=== PATIENT | female | born 1970 | race Caucasian/White ===

== ENCOUNTER 2016-09-11 14:48 | Emergency (ER) | payer OTHER ==
[2016-09-11 15:56] VITALS: BP 127/86
--- NOTE | 2016-09-11 16:56 | UC ---
Headache HPI - HPI Summary HPI Summary: frontal headache with sinus pressure x 3 days. No fever. States she was treated with an antibiotic several days ago, and seemed to get better, but still has a "migraine" headache. States she was dx'd with migraine and has been treated with a shot here before, but doesn't know the name of the shot. Does not take medication for migraines usually. Reviewing prior records from [facility] [place], pt received ketorolac in 2013. Pt agrees to try this again. Also c/o nausea and photophobia. - History Of Current Complaint Chief Complaint: UCRespiratory Stated Complaint: MIGRAINE,SINUS PRESSURE Time Seen by Provider: 09/11/16 16:53 Hx Obtained From: Patient Hx Last Menstrual Period: 08/25/16 ?: No Onset/Duration: Gradual Onset, Lasting Days, Still Present Onset Of Symptoms: Gradual Initially Headache Was: Moderate Pain Intensity: 7 Pain Scale Used: 0-10 Numeric Timing: Constant Character: Throbbing, Pressure, Migraine Location of Headache: Frontal Aggravating Factor: Nothing Allevating Factors: Nothing Associated Signs And Symptoms: Positive: Nausea, Sinus Pressure, Other (Noted In Comments) - photophobia - Risk Factors SAH Risk Factors: Smoking Meningitis Risk Factors: Negative SDH Risk Factors: Negative Temporal Arteritis Risk Factors: Female, - Allergies/Home Medications Allergies/Adverse Reactions: Allergies Allergy/AdvReac Type Severity Reaction Status Date / Time Lisinopril Allergy Severe Difficulty Verified 09/11/16 15:56 Breathing Bee Venom Allergy Intermediate Swelling Verified 09/11/16 15:56 Of Face,Lips,& Throat Penicillins AdvReac Intermediate Vomiting Verified 09/11/16 15:56 PMH/Surg Hx/FS Hx/Imm Hx Endocrine History Of: Reports: Diabetes - type II Denies: Thyroid Disease Cardiovascular History Of: Reports: Hypertension Respiratory History Of: Reports: Asthma Denies: COPD GI/ History Of: Denies: Ulcer Neurological History Of: Denies: TIA Psychological History Of: Denies: Anxiety Cancer History Of: Denies: Lung Cancer - Surgical History Surgical History: None - Family History Known Family History: Positive: Hypertension, Diabetes - Social History Alcohol Use: Rare Substance Use Type: None Smoking Status (MU): Heavy Every Day Tobacco Smoker Type: Cigarettes Amount Used/How Often: 1/2 PPD Length of Time of Smoking/Using Tobacco: 31 Years Have You Smoked in the Last Year: Yes Household Exposure Type: Cigarettes - Immunization History Most Recent Influenza Vaccination: March 2015 Review of Systems Constitutional: Negative Skin: Negative Eyes: Negative ENT: Negative Respiratory: Negative Cardiovascular: Negative Gastrointestinal: Negative Genitourinary: Negative Motor: Negative Neurovascular: Negative Musculoskeletal: Negative Neurological: Headache Psychological: Negative All Other Systems Reviewed And Are Negative: Yes Physical Exam Triage Information Reviewed: Yes Appearance: Ill-Appearing, Pain Distress, Obese Vital Signs: Initial Vital Signs Temp 97.4 F 09/11/16 15:49 Pulse 79 09/11/16 15:49 Resp 16 09/11/16 15:49 BP 127/86 09/11/16 15:49 Pulse Ox 98 09/11/16 15:49 Vital Signs Reviewed: Yes Eyes: Positive: Conjunctiva Clear ENT: Positive: Hearing grossly normal, Pharynx normal, TMs normal, Other: - frontal sinus tenderness. Negative: Muffled/hoarse voice Neck: Positive: Supple, Nontender, No Lymphadenopathy Respiratory: Positive: Lungs clear, Normal breath sounds, No respiratory distress Cardiovascular: Positive: RRR, No Murmur, Pulses Normal, Brisk Capillary Refill Musculoskeletal: Positive: Strength Intact, ROM Intact Neurological: Positive: Alert, Muscle Tone Normal, Other: - A&O X 3, CN II-XII intact, motor 5/5, sensation intact, gait normal Psychological Exam: Normal Skin Exam: Normal Re-Evaluation - Re-Evaluation First Eval Re-Evaluation Time: 18:30 - pain is better, down to a 2 Change: Improved Headache Course/Dx - Course Course Of Treatment: toradol injection. zofran - Differential Dx/Diagnosis Differential Diagnosis/HQI/PQRI: Migraine, Sinus Headache, Tension Headache Provider Diagnoses: acute headache Discharge - Discharge Plan Condition: Stable Disposition: HOME Prescriptions: Ketorolac TAB (NF) [Toradol TAB (NF)] 10 mg PO Q6H #10 tab LoraTADine TAB(NF) [Claritin 10 MG TAB(NF)] 10 mg PO DAILY #30 tab Patient Education Materials: Acute Headache (ED) Forms: *Work Release Referrals: Marla Rodriguez NP [Primary Care Provider] - Additional Instructions: We gave you a shot of toradol 60mg injectable at 5:30pm with good relief. We also gave you a dose of zofran 4mg ODT at 5:30pm. Return to urgent care if you have any new or worsening symptoms.
[2016-09-11] MEDS ORDERED: Ketorolac INJ* 60 MG/2 ML VIAL IM ONE (17:13)
[2016-09-11] MEDS ORDERED: Ondansetron ODT TAB* 4 MG PO ONE (17:14)
== END 2016-09-11 18:50 | disposition home or self-care (01) ==
LOC: UCCORT 14:48
DX: R51 Headache (principal); R11.0 Nausea; H53.149 Visual discomfort, unspecified; E66.9 Obesity, unspecified; Z88.0 Allergy status to penicillin; F17.210 Nicotine dependence, cigarettes, uncomplicated
CPT/HCPCS: 96372; 99212; G0463; J1885